=== PATIENT | female | born 1935 | race Native Hawaiian/Other Pacific Islander ===

== ENCOUNTER 2017-04-04 07:14 | Emergency (ER) | payer MEDICARE ==
[2017-04-04 07:23] VITALS: PULSE 60
--- NOTE | 2017-04-04 08:19 | XR ---
EXAMINATION TYPE: XR knee complete RT , 3 VIEWS DATE OF EXAM ORDERED: 04/04/2017 HISTORY: Pain. COMPARISON: None. FINDINGS: There is lateral joint space loss. There is peaking of intercondylar spines. There is no c hondrocalcinosis. There is a prominent joint effusion. No acute osseous lesion is seen. IMPRESSION: OSTEOARTHRITIS WITH A CONCOMITANT EFFUSION.
--- NOTE | 2017-04-04 08:20 | ED ---
Extremity Problem HPI - General Chief complaint: Extremity Problem,Nontraumatic Stated complaint: rt knee pain Time Seen by Provider: 04/04/17 08:06 Source: patient, RN notes reviewed Mode of arrival: wheelchair Limitations: no limitations - History of Present Illness Initial comments: 81-year-old female presents emergency Department chief complaint right knee pain. Patient states that she may have injured it a few days ago while walking. Patient states that she has twisted her knee in the past she does not think much of it. Patient states that she is twisted her knee in the past and has had fluid drained off. Patient states that there is moderate swelling. Patient denies any redness, fever, chills. Patient denies any falls on her knee. Patient states that she did take 600 mg of Motrin prior to arrival and states that has helped. Patient denies any paresthesias no hip pain no ankle pain. - Related Data Previous Rx's Medication Instructions Recorded Acetaminophen-Codeine 300-30mg 1 tab PO Q4H PRN #20 tablet 04/04/17 [Tylenol #3] Ibuprofen [Motrin] 600 mg PO Q8HR PRN #30 tab 04/04/17 Allergies Allergy/AdvReac Type Severity Reaction Status Date / Time Penicillins Allergy Unknown Verified 04/04/17 07:23 Review of Systems ROS Statement: Those systems with pertinent positive or pertinent negative responses have been documented in the HPI. ROS Other: All systems not noted in ROS Statement are negative. Past Medical History Past Medical History: Diabetes Mellitus, Hypertension History of Any Multi-Drug Resistant Organisms: None Reported Past Surgical History: Cholecystectomy, Hysterectomy Additional Past Surgical History / Comment(s): left meniscus, right elbow Past Psychological History: No Psychological Hx Reported Smoking Status: Never smoker Past Alcohol Use History: Occasional Past Drug Use History: None Reported General Exam Limitations: no limitations General appearance: alert, in no apparent distress Respiratory exam: Present: normal lung sounds bilaterally. Absent: respiratory distress, wheezes, rales, rhonchi, stridor Cardiovascular Exam: Present: regular rate, normal rhythm, normal heart sounds. Absent: systolic murmur, diastolic murmur, rubs, gallop, clicks Extremities exam: Present: other (Right knee there is moderate swelling noted no erythema no warmth neurovascular intact right lower extremity pulses equal bilaterally, no laxity noted there is pain with range of motion but patient has full range of motion) Skin exam: Present: warm, dry. Absent: rash Course Vital Signs 04/04/17 07:17 Temperature 97.5 F L Pulse Rate 60 Respiratory 18 Rate Blood Pressure 157/69 O2 Sat by Pulse 96 Oximetry Medical Decision Making - Medical Decision Making 81-year-old female presents emergency department for right knee pain. Patient has joint effusion noted. Patient has severe osteoarthritis. Patient will be given pain medication, Raul wrap and follow-up with orthopedics for joint aspiration. Return parameters discussed. Disposition Clinical Impression: Effusion, right knee, Right knee sprain Disposition: HOME SELF-CARE Condition: Stable Instructions: Swollen Knee Joint (ED), Osteoarthritis (ED) Additional Instructions: Please return to the Emergency Department if symptoms worsen or any other concerns. Prescriptions: Acetaminophen-Codeine 300-30mg [Tylenol #3] 1 tab PO Q4H PRN #20 tablet PRN Reason: pain Ibuprofen [Motrin] 600 mg PO Q8HR PRN #30 tab PRN Reason: Pain Referrals: None,Stated [Primary Care Provider] - 1-2 days Waqas Avilez DO [Doctor of Osteopathic Medicine] - 1-2 days Time of Disposition: 08:22
[2017-04-04 08:38] VITALS: BP 154/72; RESP 16; TEMP 97.3
== END 2017-04-04 08:41 | disposition home or self-care (01) ==
LOC: EC 07:14
DX: S83.91XA Sprain of unspecified site of right knee, initial encounter (principal); M17.11 Unilateral primary osteoarthritis, right knee; Z88.0 Allergy status to penicillin; X58.XXXA Exposure to other specified factors, initial encounter
CPT/HCPCS: 99283

== ENCOUNTER 2021-05-19 11:10 | Emergency (ER) | payer MEDICARE ==
[2021-05-19 11:16] VITALS: BP 148/70; PULSE 67; RESP 18; TEMP 98
[2021-05-19] MEDS ORDERED: IBUPROFEN 400 MG TAB PO STA (11:47)
--- NOTE | 2021-05-19 11:59 | ED ---
General Adult HPI - General Chief complaint: Headache Stated complaint: head pain Time Seen by Provider: 05/19/21 11:20 Source: patient Mode of arrival: ambulatory Limitations: no limitations - History of Present Illness Initial comments: Patient is an 85-year-old female presenting to the emergency department with 2 separate complaints. She has been having right sided neck discomfort over the past 2 days after she woke up 2 mornings ago. She states she felt like she might of slept wrong. And then a few days ago as well, she started having some scalp tenderness. She states it's worse today so she came in for evaluation. She has been using drops on her scalp to help improve hair loss. She states she's been using these for about a week. She does not notice any redness to her scalp or any sores. She denies any fevers or chills. She denies any recent falls or trauma. She denies any chest pain or shortness of breath. She denies any dizziness or weakness. She states she did take a Tylenol 2 days ago for her neck pain, it did seem to help. Patient has no further complaints at this time. Her vitals are stable upon arrival. - Related Data Home Medications Medication Instructions Recorded Confirmed Ascorbic Acid [Vitamin C] 1,000 mg PO DAILY 04/30/20 04/30/20 Aspirin EC [Ecotrin Low Dose] 81 mg PO DAILY 04/30/20 04/30/20 Atenolol/Chlorthalidone 1 tab PO DAILY 04/30/20 04/30/20 [Atenolol/Chlorthalidone 100-25] Biotin 5 mg PO DAILY 04/30/20 04/30/20 Cetirizine HCl [Zyrtec] 10 mg PO DAILY 04/30/20 04/30/20 Cholecalciferol [Vitamin D3 (25 1,000 unit PO DAILY 04/30/20 04/30/20 Mcg = 1000 Iu)] Losartan Potassium 100 mg PO DAILY 04/30/20 04/30/20 Melatonin 5 mg PO HS 04/30/20 04/30/20 Saxagliptin HCl [Onglyza] 5 mg PO DAILY 04/30/20 04/30/20 Vit C/E/Zn/Coppr/Lutein/Zeaxan 1 cap PO DAILY 04/30/20 04/30/20 [Preservision Areds 2 Softgel] Previous Rx's Medication Instructions Recorded Acetaminophen Tab [Tylenol] 650 mg PO Q6HR PRN #15 tab 05/01/20 cephALEXin [Keflex] 500 mg PO Q8HR 7 Days #21 cap 05/01/20 Allergies Allergy/AdvReac Type Severity Reaction Status Date / Time Penicillins Allergy Unknown Verified 05/19/21 11:12 Review of Systems ROS Statement: Those systems with pertinent positive or pertinent negative responses have been documented in the HPI. ROS Other: All systems not noted in ROS Statement are negative. Past Medical History Past Medical History: Diabetes Mellitus, Hypertension Additional Past Medical History / Comment(s): multiple environmental allergies History of Any Multi-Drug Resistant Organisms: None Reported Past Surgical History: Cholecystectomy, Tubal Ligation Additional Past Surgical History / Comment(s): left meniscus, right elbow Past Psychological History: No Psychological Hx Reported Smoking Status: Never smoker Past Alcohol Use History: Occasional Past Drug Use History: None Reported General Exam - General Exam Comments Initial Comments: GENERAL: Patient is well-developed and well-nourished. Patient is nontoxic and in no ac nova distress. HEAD: Atraumatic, normocephalic. EYES: Pupils equal round and reactive to light, extraocular movements intact, sclera anicteric, conjunctiva are normal. Eyelids were unremarkable. ENT: TMs normal, nares patent, oropharynx clear without exudates. Moist mucous membranes. NECK: The patient has lots of muscle tightness and tenderness along both upper trapezius muscles and cervical paraspinals, she is decreased range of motion secondary to tightness,, supple without lymphadenopathy or JVD. LUNGS: Unlabored respirations. Breath sounds clear to auscultation bilaterally and equal. No wheezes rales or rhonchi. HEART: Regular rate and rhythm without murmurs, rubs or gallops. ABDOMEN: Soft, nontender, normoactive bowel sounds. No guarding, no rebound. No masses appreciated. : Deferred MUSCULOSKELETAL: Normal extremities with adequate strength and normal range of motion, no pitting or edema. No clubbing or cyanosis. NEUROLOGICAL: Patient is alert and oriented x 3. Motor and sensory are also intact. Cranial nerves II through XII grossly intact. Symmetrical smile. Normal speech, normal gait. PSYCH: Normal mood, normal affect. SKIN: Warm, Dry, normal turgor, no rashes. Scalp is tender to the touch over there is no erythema, no bumps, no signs of infection or irritation. Limitations: no limitations Course Vital Signs 05/19/21 11:12 Temperature 98 F Pulse Rate 67 Respiratory 18 Rate Blood Pressure 148/70 O2 Sat by Pulse 95 Oximetry Medical Decision Making - Medical Decision Making Patient is an 85-year-old female here for right-sided neck soreness as well as some scalp tenderness started a few days ago. She has a lot of muscle tightness and spasms of her upper trapezius muscles. Patient has been using drops on her scalp to help improve hair loss over the past week, I believe that's causing her scalp tenderness. I recommend discontinuing these drops and ibuprofen for the discomfort. She is agreeable to this. She also has lidocaine patches at home that she tried on her right side of her neck a few days ago which did help. I told her she can continue with this, also recommended heat to the area and gentle massage. She is agreeable to this. I did give her some ibuprofen here in the ER. She is stable for discharge. She'll follow up with her primary care. Return parameters were discussed with her and she verbalized understanding. Case discussed with Dr. Huizar. Disposition Clinical Impression: Scalp irritation, Cervical muscle pain Disposition: HOME SELF-CARE Condition: Stable Instructions (If sedation given, give patient instructions): Muscle Spasm (ED) Additional Instructions: Please return to the Emergency Department if symptoms worsen or any other concerns. I recommend heat packs to the neck, gentle massage, gentle stretching as well as ibuprofen for the neck pain. You may also try lidocaine patches as discussed. Please discontinue use of tear drops as a believe this is causing your irritation of your scalp. Please follow-up with your primary care physician in a few days. Is patient prescribed a controlled substance at d/c from ED?: No Referrals: Luis Elam MD [Primary Care Provider] - 1-2 days Time of Disposition: 11:58
== END 2021-05-19 12:28 | disposition home or self-care (01) ==
LOC: EC 11:10
DX: M54.2 Cervicalgia (principal); R51.9 Headache, unspecified; E11.9 Type 2 diabetes mellitus without complications; I10 Essential (primary) hypertension; Z79.82 Long term (current) use of aspirin; Z79.84 Long term (current) use of oral hypoglycemic drugs; Z79.899 Other long term (current) drug therapy; Z88.0 Allergy status to penicillin; Z90.49 Acquired absence of other specified parts of digestive tract
CPT/HCPCS: 99283

== ENCOUNTER 2023-04-27 15:07 | Emergency (ER) | payer MEDICARE ==
[2023-04-27 16:08] VITALS: TEMP 98.7
[2023-04-27] MEDS ORDERED: APIXABAN 5 MG TAB PO STA (18:25)
--- NOTE | 2023-04-27 18:28 | ED ---
Recheck HPI - General Chief Complaint: Recheck/Abnormal Lab/Rx Stated Complaint: +DVT left leg Time Seen by Provider: 04/27/23 17:38 Source: patient, RN notes reviewed, old records reviewed Mode of arrival: wheelchair Limitations: no limitations - History of Present Illness Initial Comments: This is a 87-year-old female to the emergency department today. Patient presents today for evaluation of positive outpatient testing. Patient had ultrasound showing positive DVT. Patient has no headache chest pain shortness breath abdominal pain no other complaints no travel history no recent surgery no prior history of DVT MD Complaint: other (Ultrasound positive outpatient) -: minutes(s) Returns Today for: Called Because of Abnormal Lab/Test Symptoms Since Prior Visit: no new symptoms Context: planned re-check Associated Symptoms: none - Related Data Home Medications Medication Instructions Recorded Confirmed Ascorbic Acid [Vitamin C] 1,000 mg PO DAILY 04/30/20 04/30/20 Aspirin EC [Ecotrin Low Dose] 81 mg PO DAILY 04/30/20 04/30/20 Atenolol/Chlorthalidone 1 tab PO DAILY 04/30/20 04/30/20 [Atenolol/Chlorthalidone 100-25] Biotin 5 mg PO DAILY 04/30/20 04/30/20 Cetirizine HCl [Zyrtec] 10 mg PO DAILY 04/30/20 04/30/20 Cholecalciferol [Vitamin D3 (25 1,000 unit PO DAILY 04/30/20 04/30/20 Mcg = 1000 Iu)] Losartan Potassium 100 mg PO DAILY 04/30/20 04/30/20 Melatonin 5 mg PO HS 04/30/20 04/30/20 Saxagliptin HCl [Onglyza] 5 mg PO DAILY 04/30/20 04/30/20 Vit C/E/Zn/Coppr/Lutein/Zeaxan 1 cap PO DAILY 04/30/20 04/30/20 [Preservision Areds 2 Softgel] Previous Rx's Medication Instructions Recorded Acetaminophen Tab [Tylenol] 650 mg PO Q6HR PRN #15 tab 05/01/20 cephALEXin [Keflex] 500 mg PO Q8HR 7 Days #21 cap 05/01/20 Apixaban [Eliquis Starter Pack 5 - 10 mg PO DIRECTED 30 Days 04/27/23 (for VTE)] #1 each Apixaban [Eliquis] 5 mg PO BID #60 tab 04/27/23 Allergies Allergy/AdvReac Type Severity Reaction Status Date / Time Penicillins Allergy Unknown Verified 04/27/23 16:08 Review of Systems ROS Statement: Those systems with pertinent positive or pertinent negative responses have been documented in the HPI. ROS Other: All systems not noted in ROS Statement are negative. Past Medical History Past Medical History: Diabetes Mellitus, Hypertension Additional Past Medical History / Comment(s): multiple environmental allergies History of Any Multi-Drug Resistant Organisms: None Reported Past Surgical History: Cholecystectomy, Tubal Ligation Additional Past Surgical History / Comment(s): left meniscus, right elbow Past Psychological History: No Psychological Hx Reported Smoking Status: Never smoker Past Alcohol Use History: Rare Past Drug Use History: None Reported General Exam Limitations: no limitations General appearance: alert, in no apparent distress Head exam: Present: atraumatic, normocephalic, normal inspection Eye exam: Present: normal appearance, PERRL, EOMI. Absent: scleral icterus, conjunctival injection, periorbital swelling ENT exam: Present: normal exam, mucous membranes moist Neck exam: Present: normal inspection. Absent: tenderness, meningismus, lymphadenopathy Respiratory exam: Present: normal lung sounds bilaterally. Absent: respiratory distress, wheezes, rales, rhonchi, stridor Cardiovascular Exam: Present: regular rate, normal rhythm, normal heart sounds. Absent: systolic murmur, diastolic murmur, rubs, gallop, clicks GI/Abdominal exam: Present: soft, normal bowel sounds. Absent: distended, tenderness, guarding, rebound, rigid Extremities exam: Present: normal inspection, full ROM, normal capillary refill. Absent: tenderness, pedal edema, joint swelling, calf tenderness Back exam: Present: normal inspection Neurological exam: Present: alert, oriented X3, CN II-XII intact Psychiatric exam: Present: normal affect, normal mood Skin exam: Present: warm, dry, intact, normal color. Absent: rash Course Vital Signs 04/27/23 04/27/23 04/27/23 16:01 17:35 18:00 Temperature 98.7 F Pulse Rate 62 62 Respiratory 18 Rate Blood Pressure 176/84 142/128 O2 Sat by Pulse 97 96 95 Oximetry 04/27/23 04/27/23 18:30 19:00 Temperature 98.7 F Pulse Rate 63 65 Respiratory 16 Rate Blood Pressure 148/72 124/104 O2 Sat by Pulse 97 Oximetry - Reevaluation(s) Reevaluation #1: 04/27/23 23:35 Medical records reviewed Reevaluation #2: 04/27/23 23:35 Symptoms unchanged Reevaluation #3: 04/27/23 23:35 Patient informed results questions answered Reevaluation #4: 04/27/23 23:35 Was pt. sent in by a medical professional or institution (OLGA Jon, BRANCH OPERATIONS SPECIALIST, urgent care, hospital, or halfway...) When possible be specific @ -no Did you speak to anyone other than the patient for history (EMS, parent, family, police, friend...)? What history was obtained from this source @ -no Did you review nursing and triage notes (agree or disagree)? Why? @ -agree Are old charts reviewed (outside hosp., previous admission, EMS record, old EKG, old radiological studies, urgent care reports/EKG's, halfway records)? Report findings @ -yes Differential Diagnosis (chest pain, altered mental status, abdominal pain women, abdominal pain men, vaginal bleeding, weakness, fever, dyspnea, syncope, headache, dizziness, GI bleed, back pain, seizure, CVA, palpatations, mental health, musculoskeletal)? @ -prior EKG interpreted by me (3pts min.). @ -no X-rays interpreted by me (1pt min.). @ -no CT interpreted by me (1pt min.). @ -no U/S interpreted by me (1pt. min.). @ -yes What testing was considered but not performed or refused? (CT, X-rays, U/S, labs)? Why? @ -none What meds were considered but not given or refused? Why? @ -none Did you discuss the management of the patient with other professionals (professionals i.e. OLGA Jon, BRANCH OPERATIONS SPECIALIST, lab, RT, psych nurse, social science manager, senior boiler operator, teacher, science and operations officer, corrections caseworker)? Give summary @ -no Was smoking cessation discussed for >3mins.? @ -no Was critical care preformed (if so, how long)? @ -no Were there social determinants of health that impacted care today? How? (Homelessness, low income, unemployed, alcoholism, drug addiction, transportation, low edu. Level, literacy, decrease access to med. care, longterm, rehab)? @ -none Was there de-escalation of care discussed even if they declined (Discuss DNR or withdrawal of care, Hospice)? DNR status @ -no What co-morbidities impacted this encounter? (DM, HTN, Smoking, COPD, CAD, Cancer, CVA, ARF, Chemo, Hep., AIDS, mental health diagnosis, sleep apnea, morbid obesity)? @ -none Was patient admitted / discharged? Hospital course, mention meds given and route, prescriptions, significant lab abnormalities, going to OR and other pertinent info. @ - 87 female to the emergency department today for evaluation of left lower extremity DVT found on outpatient ultrasound. Images reviewed patient placed on Eliquis and can be discharged home Discharge Undiagnosed new problem with uncertain prognosis? @ -no Drug Therapy requiring intensive monitoring for toxicity (Heparin, Nitro, Insulin, Cardizem)? @ -no Were any procedures done? @ -no Diagnosis/symptom? @ -DVT Acute, or Chronic, or Acute on Chronic? @ -Acute Uncomplicated (without systemic symptoms) or Complicated (systemic symptoms)? @ -Complicated Side effects of treatment? @ -no Exacerbation, Progression, or Severe Exacerbation? @ -exacerbation Poses a threat to life or bodily function? How? (Chest pain, [place], [place], pneumonia, PE, COPD, DKA, ARF, appy, cholecystitis, CVA, Diverticulitis, Homicidal, Suicidal, threat to staff... and all critical care pts) @ -yes DVT leading to pulmonary embolism Medical Decision Making - Medical Decision Making 87 female to the emergency department today for evaluation of left lower extremity DVT found on outpatient ultrasound. Images reviewed patient placed on Eliquis and can be discharged home - Radiology Data Radiology results: report reviewed (Ultrasound positive for DVT) Disposition Clinical Impression: Left leg DVT Disposition: HOME SELF-CARE Condition: Good Instructions (If sedation given, give patient instructions): Deep Vein Thrombosis (ED) Prescriptions: Apixaban [Eliquis] 5 mg PO BID #60 tab Apixaban [Eliquis Starter Pack (for VTE)] 5 - 10 mg PO DIRECTED 30 Days #1 each Is patient prescribed a controlled substance at d/c from ED?: No Referrals: Hunter Elam MD [Primary Care Provider] - 1-2 days Time of Disposition: 18:20
[2023-04-27 19:24] VITALS: BP 124/104; PULSE 65; RESP 16
== END 2023-04-27 19:33 | disposition home or self-care (01) ==
LOC: EC 15:07
DX: I82.402 Acute embolism and thrombosis of unspecified deep veins of left lower extremity (principal); E11.9 Type 2 diabetes mellitus without complications; I10 Essential (primary) hypertension; Z88.0 Allergy status to penicillin; Z79.82 Long term (current) use of aspirin; Z79.01 Long term (current) use of anticoagulants; Z79.84 Long term (current) use of oral hypoglycemic drugs; Z79.899 Other long term (current) drug therapy
CPT/HCPCS: 99283

== ENCOUNTER → 2023-04-27 | Outpatient (CLI) | payer MEDICARE ==
--- NOTE | 2023-04-27 15:08 | US ---
EXAMINATION TYPE: US venous doppler duplex LE LT DATE OF EXAM: 04/27/2023 2:47 PM COMPARISON: NONE CLINICAL INDICATION: Female, 87 years old with history of M25.562 pain in limb,Q21432,M17.12,M21.061, ; left leg redness and swelling. Not on blood thinners. Recent plane trip from [place] end of A pril. SIDE PERFORMED: Left TECHNIQUE: The lower extremity deep venous system is examined utilizing real time linear array sonog matthew with graded compression, doppler sonography and color-flow sonography. VESSELS IMAGED: Common Femoral Vein Deep Femoral Vein Greater Saphenous Vein * Femoral Vein Popliteal Vein Small Saphenous Vein * Proximal Calf Veins (* superficial vessels) Left Leg: Positive for occluding DVT from EIV to PTV's. Vein appears dilated with internal echoes. Positive for SVT in GSV and SSV. IMPRESSION: Positive for occluding DVT from EIV to PTV's. Vein appears dilated with internal echoes. Positive fo r SVT in GSV and SSV.
== END | disposition home or self-care (01) ==
LOC: RADUSWWP 14:22
PROVIDERS: ATTEND Orthopaedic Surgery
DX: I82.612 Acute embolism and thrombosis of superficial veins of left upper extremity (principal); I82.812 Embolism and thrombosis of superficial veins of left lower extremity